=== PATIENT | female | born 1990 | race Caucasian/White ===

== ENCOUNTER 2018-01-12 02:59 | Emergency (ER) | payer OTHER ==
[~2018-01-12] VITALS: Ht 165.1 cm; Wt 105.3 kg
[2018-01-12 03:01] VITALS: BP 129/86
[2018-01-12] MEDS ORDERED: HYDROcodone/APAP 5/325 TABLET PO ONE (03:30)
[2018-01-12] MEDS ORDERED: HYDROcodone/APAP 5/325 TABLET ONE (03:30)
== END 2018-01-12 04:54 | disposition home or self-care (01) ==
LOC: ED 03:40
DX: S93.402A Sprain of unspecified ligament of left ankle, initial encounter (principal); J45.909 Unspecified asthma, uncomplicated; Z87.891 Personal history of nicotine dependence; X50.9XXA Other and unspecified overexertion or strenuous movements or postures, initial encounter; Y93.89 Activity, other specified; Y99.8 Other external cause status; Y92.89 Other specified places as the place of occurrence of the external cause
CPT/HCPCS: 99284

== ENCOUNTER 2019-05-20 19:20 | Emergency (ER) | payer OTHER ==
[~2019-05-20] VITALS: Ht 165.1 cm; Wt 106.5 kg
[2019-05-20 19:25] VITALS: BP 127/83
[2019-05-20] MEDS ORDERED: KETOROLAC 30 MG/1 ML ONE (19:45)
--- NOTE | 2019-05-20 19:48 | NUR ---
MEDS ADMIN PER JUN. XRAY AT BEDSIDE.
[2019-05-20] MEDS ORDERED: KETOROLAC 30 MG/1 ML IM ONE (20:00)
== END 2019-05-20 20:18 | disposition home or self-care (01) ==
LOC: ED 20:15
DX: S93.401A Sprain of unspecified ligament of right ankle, initial encounter (principal); Z87.891 Personal history of nicotine dependence; X50.0XXA Overexertion from strenuous movement or load, initial encounter; Y92.410 Unspecified street and highway as the place of occurrence of the external cause; Y93.89 Activity, other specified; Y99.8 Other external cause status
CPT/HCPCS: 73610; 96372; 99283; J1885

== ENCOUNTER 2019-07-22 01:06 | Emergency (ER) | payer OTHER ==
[~2019-07-22] VITALS: Ht 165.1 cm; Wt 108.5 kg
[2019-07-22] MEDS ORDERED: CYCLOBENZAPRINE 10 MG TABLET PO STA (01:38)
[2019-07-22] MEDS ORDERED: CYCLOBENZAPRINE 10 MG TABLET ONE (01:45)
[2019-07-22] MEDS ORDERED: KETOROLAC 30 MG/1 ML ONE (01:45)
[2019-07-22] MEDS ORDERED: KETOROLAC 30 MG/1 ML IM ONE (02:00)
--- NOTE | 2019-07-22 02:37 | NUR ---
PT RESTING COMFORTABLY. NO NEEDS AT THIS TIME.
[2019-07-22 03:02] VITALS: BP 116/79
== END 2019-07-22 03:04 | disposition home or self-care (01) ==
LOC: ED 01:37
DX: S39.012A Strain of muscle, fascia and tendon of lower back, initial encounter (principal); J45.909 Unspecified asthma, uncomplicated; W18.30XA Fall on same level, unspecified, initial encounter; Y93.89 Activity, other specified; Y92.89 Other specified places as the place of occurrence of the external cause; Y99.8 Other external cause status
CPT/HCPCS: 72110; 96372; 99283; J1885

== ENCOUNTER 2020-02-13 11:41 | Emergency (ER) | payer OTHER ==
[~2020-02-13] VITALS: Ht 165.1 cm; Wt 106.1 kg
[2020-02-13 13:14] LABS: BASOPHILS % (AUTO) 0 % (0-1); EOSINOPHILS % (AUTO) 2 % (1-7); LYMPHOCYTES % (AUTO) 19 % (22-44); MEAN CORPUSCULAR HEMOGLOBIN 28.5 pg (27.0-34.8); MEAN CORPUSCULAR HGB CONC 32.7 g/dL (32.4-35.8); MONOCYTES % (AUTO) 6 % (2-9); NEUTROPHILS % (AUTO) 73 % (42-75); PLATELET COUNT 188 x10^3/uL (130-400); RED BLOOD COUNT 5.02 x10^6/uL (3.82-5.3); RED CELL DISTRIBUTION WIDTH 13.6 % (9.6-15.2)
[2020-02-13 13:24] LABS: MD NO
[2020-02-13 13:26] LABS: MICROSCOPIC NOT IND
[2020-02-13 13:45] LABS: ALANINE AMINOTRANSFERASE 25 U/L (12-78); ALBUMIN 3.7 g/dL (3.4-5.0); ANION GAP 3 mmol/L (5-15); CALCIUM 8.7 mg/dL (8.5-10.1); CHLORIDE 108 mmol/L (98-107); CREATININE 1.13 mg/dL (0.55-1.02)
[2020-02-13 13:49] LABS: ALKALINE PHOSPHATASE 89 U/L (45-117); BILIRUBIN,TOTAL 0.9 mg/dL (0.2-1.0); TOTAL PROTEIN 7.6 g/dL (6.4-8.2)
[2020-02-13 14:15] VITALS: BP 128/84
== END 2020-02-13 14:17 | disposition home or self-care (01) ==
LOC: ED 13:52
DX: B34.9 Viral infection, unspecified (principal); R50.9 Fever, unspecified; Z20.828 Contact with and (suspected) exposure to other viral communicable diseases; R11.2 Nausea with vomiting, unspecified; R51.9 Headache, unspecified; J45.909 Unspecified asthma, uncomplicated
CPT/HCPCS: 36415; 80053; 81003; 83690; 84703; 85025; 87635; 99283